=== PATIENT | male | born 1970 | race Two or more races ===

== ENCOUNTER 2019-05-07 13:16 | Emergency (ER) | payer SELFPAY ==
--- NOTE | 2019-05-07 14:39 | ER Document Report ---
ED Skin Rash/Insect Bite/Abscs - General Chief Complaint: Abscess Stated Complaint: BUTTOCK PAIN Time Seen by Provider: 05/07/19 14:05 Notes: 49-year-old male presents the emergency department chief complaint of an abscess. Patient states he is gotten one before in the same area which is on his right butt cheek at the cleft. Patient states that several days. Patient denies any redness, denies any fever chills, denies history of MRSA. TRAVEL OUTSIDE OF THE [place] IN LAST 30 DAYS: No - Related Data Allergies/Adverse Reactions: No Known Allergies Allergy (Unverified 05/07/19 13:18) Past Medical History - Social History Smoking Status: Never Smoker Frequency of alcohol use: None Drug Abuse: None Family History: None Patient has suicidal ideation: No Patient has homicidal ideation: No Review of Systems - Review of Systems Constitutional: See HPI EENT: No symptoms reported Cardiovascular: No symptoms reported Respiratory: No symptoms reported Gastrointestinal: No symptoms reported Genitourinary: No symptoms reported Male Genitourinary: No symptoms reported Musculoskeletal: No symptoms reported Skin: See HPI Hematologic/Lymphatic: No symptoms reported Neurological/Psychological: No symptoms reported Physical Exam - Vital signs Vitals: Temp Pulse Resp BP Pulse Ox 98.1 F 78 13 125/70 96 05/07/19 13:22 05/07/19 13:22 05/07/19 13:22 05/07/19 13:22 05/07/19 13:22 - Notes Notes: PHYSICAL EXAMINATION: Reviewed vital signs and charting by RN GENERAL: Alert, interacts well. No acute distress. HEAD: Normocephalic, atraumatic. EYES: Pupils equal and round. Extraocular movements intact. EXTREMITIES: Moves all 4 extremities spontaneously. No edema, No cyanosis. PSYCH: Normal affect, normal mood. SKIN: Warm, dry, normal turgor. Area of induration on the right cheek near the fold indurated, difficult to palpate an area of fluctuance, no surrounding erythema, acutely tender to touch. Course - Re-evaluation Re-evalutation: 05/07/19 15:58 Patient was very anxious and skittish when I was about to anesthetize the area. I put ultrasound on it and there was a fluid pocket that was seen. I gave the patient diazepam 10 mg IM once and reassess to 20 minutes later. He states that he was feeling [place] and I was able to properly anesthetized the area with lidocaine 1% with epinephrine. I then performed an incision and drainage using a #15 scalpel expressed moderate amount of purulent discharge. Patient tolerated the procedure well. Discharge instructions given, patient is stable for discharge. - Vital Signs Vital signs: Temp Pulse Resp BP Pulse Ox 98.1 F 78 13 125/70 96 05/07/19 13:22 05/07/19 13:22 05/07/19 13:22 05/07/19 13:05/07/19 13:22 Procedures - Incision and Drainage Right Buttock Type: Simple Anesthetic type: 1% Lidocaine w/epi Blade size: 16 I&D procedure: Betadine prep applied Incision Method: Incision made by scalpel Discharge - Discharge Clinical Impression: Abscess Condition: Good Disposition: HOME, SELF-CARE Additional Instructions: You were seen for an abscess that required drainage. Please clean this area with soap and water twice daily and apply a topical antibiotic. Dress the area after each cleaning. Please return if you develop fever, vomiting, the pain at the site worsens, you notice spreading redness from the area, or you have any other symptoms that are concerning to you.
[2019-05-07] MEDS ORDERED: LIDOCAINE 1%/EPINEPHRINE INJ 20 ML VIAL INJ ONE (14:46)
[2019-05-07] MEDS ORDERED: DIAZEPAM INJ 10 MG/2 ML DISP.SYRIN IM ONE (15:01)
[2019-05-07] MEDS ORDERED: IBUPROFEN 600 MG TABLET PO ONE (16:17)
[2019-05-07] MEDS ORDERED: ACETAMINOPHEN 325 MG TABLET PO ONE (16:17)
[2019-05-07 16:22] VITALS: BP 149/93
== END 2019-05-07 16:22 | disposition home or self-care (01) ==
LOC: ER 13:16
DX: L02.31 Cutaneous abscess of buttock (principal)
CPT/HCPCS: 99283; 96372; 10060; J3360; J3490

== ENCOUNTER 2019-05-14 18:17 | Emergency (ER) | payer MEDICAID ==
--- NOTE | 2019-05-14 19:03 | ER Document Report ---
ED Medical Screen (RME) - General Chief Complaint: Abscess Stated Complaint: ABSCESS/BUTTOCK AREA Time Seen by Provider: 05/14/19 19:00 Mode of Arrival: Ambulatory Information source: Patient Notes: Patient presents emergency department with abscess to his left buttocks. Patient reports he was here 7 days ago for another abscess on his left buttocks. Denies history of MRSA. Denies fever vomiting diarrhea I have greeted and performed a rapid initial assessment of this patient. A comprehensive ED assessment and evaluation of the patient, analysis of test results and completion of the medical decision making process will be conducted by additional ED providers. Dictation of this chart was performed using voice recognition software; therefore, there may be some unintended grammatical errors. TRAVEL OUTSIDE OF THE [place] IN LAST 30 DAYS: No - Related Data Allergies/Adverse Reactions: No Known Allergies Allergy (Unverified 05/07/19 13:18) Past Medical History - Social History Frequency of alcohol use: Rare Drug Abuse: None Physical Exam - Vital signs Vitals: Temp Pulse Resp BP Pulse Ox 98.7 F 91 18 131/74 H 95 05/14/19 18:24 05/14/19 18:24 05/14/19 18:24 05/14/19 18:24 05/14/19 18:24 Course - Vital Signs Vital signs: Temp Pulse Resp BP Pulse Ox 98.7 F 91 18 131/74 H 95 05/14/19 18:24 05/14/19 18:24 05/14/19 18:24 05/14/19 18:24 05/14/19 18:24
--- NOTE | 2019-05-14 22:11 | ER Document Report ---
ED Skin Rash/Insect Bite/Abscs - General Chief Complaint: Abscess Stated Complaint: ABSCESS/BUTTOCK AREA Time Seen by Provider: 05/14/19 22:11 Mode of Arrival: Ambulatory Notes: HISTORY OF PRESENT ILLNESS: Patient is a 49-year-old male with a past medical history of MRSA abscess status post incision and drainage over 1 week ago who presents with any swelling to the left buttock that began 2 to 3 days ago. Patient reports this is similar to his previous encounter, however he presented earlier than he did last time. Location: Left buttock Onset: 2 to 3 days ago Provocation: Unknown Quality: Aching Radiation: None Severity: Mild to moderate Timing: Constant Associated symptoms: Denies fevers or chills, no cough or congestion, no drainage REVIEW OF SYSTEMS: CONSTITUTIONAL : Denies fever or chills, no sweats. Denies recent illness. EENT: Denies eye, ear, throat, or mouth pain or symptoms. Denies nasal or sinus congestion. CARDIOVASCULAR: Denies chest pain. RESPIRATORY: Denies cough, cold, or chest congestion. Denies shortness of breath, difficulty breathing, or wheezing. GASTROINTESTINAL: Denies abdominal pain. Denies nausea, vomiting, or diarrhea. Denies constipation. GENITOURINARY: Denies difficulty urinating, painful urination, burning, frequency, or blood in urine. MUSCULOSKELETAL: Denies neck or back pain or joint pain or swelling. SKIN: Positive for pain and swelling to the left buttock. HEMATOLOGIC : Denies easy bruising or bleeding. LYMPHATIC: Denies swollen, enlarged glands. NEUROLOGICAL: Denies altered mental status or loss of consciousness. Denies headache. Denies weakness or paralysis or loss of use of either side. Denies problems with gait or speech. Denies sensory or motor loss. PSYCHIATRIC: Denies anxiety or stress or depression. All other systems reviewed and negative. PHYSICAL EXAMINATION: GENERAL: Well-appearing, well-nourished and in no acute distress. HEAD: Atraumatic, normocephalic. No scalp deformity, depression, or crepitance. EYES: Pupils are 3 mm and equal/round/reactive to light, extraocular movements intact, sclera anicteric, conjunctiva are normal. ENT: Nares patent bilaterally, oropharynx clear without exudates or palatal pet echia. Moist mucous membranes. No tonsil hypertrophy. NECK: Normal range of motion, supple without lymphadenopathy. LUNGS: Breath sounds present, equal, and clear to auscultation bilaterally. No wheezes, rales, or rhonchi. HEART: Regular rate and rhythm without murmurs, rubs, or gallops. 2+ peripheral pulses. Normal capillary refill. ABDOMEN: Soft, nontender, nondistended. Normoactive bowel sounds. No guarding, no rebound. No masses appreciated. BACK: Normal contour, no midline tenderness. There is a 3 to 4 cm area of induration and erythema to the posterior aspect of the left buttock, no fluctuance, no drainage. GENITAL: Deferred. EXTREMITIES: Normal range of motion, no pitting or edema. No cyanosis. NEUROLOGICAL: No focal neurological deficits. Moves all extremities spontaneously and on command. PSYCH: Normal mood, normal affect. No suicidal thoughts/ideations. No homicidal thoughts/ideations. No hallucinations. SKIN: Warm, dry, normal turgor, no rashes or lesions noted. ASSESSMENT AND PLAN: This patient is a 49-year-old male who presents with pain and swelling to the left buttock that most likely represents cellulitis, there appears to be no fluid collection or fluctuance to incise and drain. 1. Will give oral doxycycline with [place]. 2. Will charge. TRAVEL OUTSIDE OF THE [place] IN LAST 30 DAYS: No - HPI Patient complains to provider of: Skin rash/lesion Onset: Other - 2 or 3 days ago Onset/Duration: Gradual Quality of pain: Achy Severity: Mild Pain Level: 2 Skin Character: Erythema, Swelling Skin Temperature: Warm Identify cause: No Exacerbated by: Sitting, Movement Relieved by: Denies Similar symptoms previously: Yes Recently seen / treated by doctor: Yes - Related Data Allergies/Adverse Reactions: No Known Allergies Allergy (Unverified 05/07/19 13:18) Past Medical History - General Information source: Patient - Social History Smoking Status: Current Some Day Smoker Chew tobacco use (# tins/day): No Frequency of alcohol use: Rare Drug Abuse: None Lives with: Family Family History: None Patient has suicidal ideation: No Patient has homicidal ideation: No - Past Medical History Cardiac Medical History: Reports: None Pulmonary Medical History: Reports: None EENT Medical History: Reports: None Neurological Medical History: Reports: None Endocrine Medical History: Reports: None Renal/ Medical History: Reports: None Malignancy Medical History: Reports None GI Medical History: Reports: None Musculoskeletal Medical History: Reports None Skin Medical History: Reports Hx MRSA Psychiatric Medical History: Reports: None Traumatic Medical History: Reports: None Infectious Medical History: Reports: Hx MRSA Surgical Hx: Negative Past Surgical History: Reports: None - Immunizations Immunizations up to date: Yes Review of Systems - Review of Systems Constitutional: No symptoms reported EENT: No symptoms reported Cardiovascular: No symptoms reported Respiratory: No symptoms reported Gastrointestinal: No symptoms reported Genitourinary: No symptoms reported Male Genitourinary: No symptoms reported Musculoskeletal: No symptoms reported Skin: See HPI, Lesions Hematologic/Lymphatic: No symptoms reported Neurological/Psychological: No symptoms reported -: Yes All other systems reviewed and negative Physical Exam - Vital signs Vitals: Temp Pulse Resp BP Pulse Ox 98.7 F 91 18 131/74 H 95 05/14/19 18:24 05/14/19 18:24 05/14/19 18:24 05/14/19 18:24 05/14/19 18:24 Interpretation: Normal Course - Re-evaluation Re-evalutation: 05/15/19 02:40 Will discharge the patient home with strict return precautions and follow-up with primary care. All results were explained to and discussed with the patient, and all questions addressed and answered for the patient. The patient and his voice both understanding and agreeing with the plan. - Vital Signs Vital signs: Temp Pulse Resp BP Pulse Ox 98.3 F 79 17 127/75 H 96 05/15/19 01:14 05/14/19 23:09 05/15/19 01:14 05/15/19 01:14 05/15/19 01:14 Discharge - Discharge Clinical Impression: Cellulitis Qualifiers: Site of cellulitis: buttock Qualified Code(s): L03.317 - Cellulitis of buttock Condition: Good Disposition: HOME, SELF-CARE Instructions: MRSA Cellulitis ([facility]) Additional Instructions: You have been evaluated in the Emergency Department for an infection on your buttocks. While here, you were given antibiotics and it is now safe to be discharged home. Please follow-up with your primary physician as instructed in one week to be rechecked. Return to the Emergency Department if you experience worsening pain, drainage from the area, the inability to have a bowel movement, or any other concerning symptoms. Prescriptions: Hydrocodone/Acetaminophen [[place] 5-325 mg Tablet] 1 tab PO Q6HP PRN #20 tablet PRN Reason: For Pain Doxycycline Hyclate 100 mg PO BID #20 capsule Print Language: Estonian
[2019-05-14] MEDS ORDERED: DOXYCYCLINE HYCLATE 100 MG TABLET PO ONE (23:42)
[2019-05-14] MEDS ORDERED: OXYCODONE-ACETAMINOPHEN 5-325 MG TABLET PO ONE (23:42)
[2019-05-15 01:16] VITALS: BP 127/75
== END 2019-05-15 01:15 | disposition home or self-care (01) ==
LOC: ER 18:17
DX: L03.317 Cellulitis of buttock (principal); L02.31 Cutaneous abscess of buttock; R21 Rash and other nonspecific skin eruption; F17.200 Nicotine dependence, unspecified, uncomplicated
CPT/HCPCS: 99282